=== PATIENT | male | born 1955 | race Caucasian/White ===

== ENCOUNTER 2020-12-12 08:11 | Day surgery (SDC) | payer OTHER, SELFPAY ==
--- NOTE | 2020-12-11 14:22 | P.CONAN_ITS ---
Documented by User: Vale Carolina NP 12/11/20 14:23 HPI - Anesthesia Eval Consult details Narrative: 65yo M for Colonoscopy [facility] Past Medical History Medical History (Updated 12/08/20 @ 10:59 by Patricia Groves, RN) Crohn disease HTN (hypertension) Ulcerative colitis Surgical History Surgical History (Updated 12/08/20 @ 10:59 by Patricia Groves, RN) History of tonsillectomy Hx of colonoscopy Hx of right knee surgery Social History Social History Patient Tobacco Use Status: Never used Tobacco Second Hand Smoke Exposure: No Use of substances other than those prescribed or required for medical reasons: No Are you DNR?: No Advance Directives: No Advance Directives Information Provided: Yes Advance Directives on File: No Meds Allergies Allergy/AdvReac Type Severity Reaction Status Date / Time Penicillins [PCN] Allergy Mild Rash Verified 12/12/20 08:52 Home Medications Medication Instructions Recorded Confirmed Last Taken Type adalimumab 40 mg/0.8 mL 40 mg SUBCUT Q2W 12/08/20 12/08/20 Unknown History subcutaneous syringe kit (Humira) mesalamine 250 mg 1,000 mg PO QID 12/08/20 12/08/20 Unknown History capsule,controlled release (Pentasa) amlodipine 10 mg tablet 1 tab PO DAILY 12/12/20 12/12/20 12/12/20 History atorvastatin 20 mg tablet 1 tab PO DAILY 12/12/20 12/12/20 Unknown History clonidine HCl 0.1 mg tablet 1 tab PO BID 12/12/20 12/12/20 Unknown History hydrocortisone acetate 25 mg mg LA BEDTIME 12/12/20 Unknown History rectal suppository lisinopril 40 mg tablet 1 tab PO DAILY 12/12/20 12/12/20 12/12/20 History mesalamine 250 mg mg PO 12/12/20 Unknown History capsule,controlled release (Pentasa) nitroglycerin 0.4 mg sublingual mg SUBLINGUAL 12/12/20 Unknown History tablet sildenafil 100 mg tablet mg PO 12/12/20 12/12/20 Unknown History Exam Exam Date and Time: December 11, 2020 142 Assessment and Plan Assessment Anesthesia Assessment: Chart Reviewed Documented by User: Rosita Rodriguez MD 12/12/20 09:38 PMF Active Problems Active Problems: HTN Hyperlipidemia Past Medical History Medical History (Updated 12/08/20 @ 10:59 by Patricia Groves, RN) Crohn disease HTN (hypertension) Ulcerative colitis Family History Family history of problems with anesthesia: No Surgical History Surgical History (Updated 12/08/20 @ 10:59 by Patricia Groves, RN) History of tonsillectomy Hx of colonoscopy Hx of right knee surgery History of Problems with Anesthesia: No Social History Social History Patient Tobacco Use Status: Never used Tobacco Second Hand Smoke Exposure: No Use of substances other than those prescribed or required for medical reasons: No Are you DNR?: No Advance Directives: No Advance Directives Information Provided: Yes Advance Directives on File: No Meds Allergies Allergy/AdvReac Type Severity Reaction Status Date / Time Penicillins [PCN] Allergy Mild Rash Verified 12/12/20 08:52 Home Medications Medication Instructions Recorded Confirmed Last Taken Type adalimumab 40 mg/0.8 mL 40 mg SUBCUT Q2W 12/08/20 12/08/20 Unknown History subcutaneous syringe kit (Humira) mesalamine 250 mg 1,000 mg PO QID 12/08/20 12/08/20 Unknown History capsule,controlled release (Pentasa) amlodipine 10 mg tablet 1 tab PO DAILY 12/12/20 12/12/20 12/12/20 History atorvastatin 20 mg tablet 1 tab PO DAILY 12/12/20 12/12/20 Unknown History clonidine HCl 0.1 mg tablet 1 tab PO BID 12/12/20 12/12/20 Unknown History hydrocortisone acetate 25 mg mg LA BEDTIME 12/12/20 Unknown History rectal suppository lisinopril 40 mg tablet 1 tab PO DAILY 12/12/20 12/12/20 12/12/20 History mesalamine 250 mg mg PO 12/12/20 Unknown History capsule,controlled release (Pentasa) nitroglycerin 0.4 mg sublingual mg SUBLINGUAL 12/12/20 Unknown History tablet sildenafil 100 mg tablet mg PO 12/12/20 12/12/20 Unknown History Exam Height,Weight and Vital Signs: Height 6 ft Weight 104.326 kg Vital Signs Temp Pulse Resp BP Pulse Ox 12/12/20 08:51 97.8 F 67 16 139/88 96 Narrative Narrative: No sildenafil for weeks Prescribed nitroglycerin if needed for chest pain. Patient states never had chest pain but BP was high. BP controlled with anti- hypertensives. Has not used or needed NTG Airway Mallampati Class: II TM Dist: >3cm Neck ROM: Full Loose/Missing/Broken Teeth: No Heart: RRR Lungs: CTAB Assessment and Plan Assessment Anesthesia Assessment: Anesthesia Plan Discussed Final Anesthetic Review Family History of Problems with Anesthesia: No History of Problems with Anesthesia: No NPO: Yes ASA Class: II Final Preanesthetic Review: No Changes in Pt Med Stat, Meds/Allgs Chart Reviewed, Consent Obtained/Reviewed and Anes Risks/Benef Reviewed Patient Risk: Low Procedure Risk: Low Assessment/Block/Sedation in SS: Assess/Block/Sedation-SS Anesthetic Plan Anesthetic Plan: MAC: Disposition: Standard PACU
[2020-12-12 08:44] VITALS: BMI 31.1
[2020-12-12 08:51] VITALS: BP 139/88; PULSE 67; RESP 16; TEMP 36.6; O2SAT 96
[2020-12-12] MEDS: Lactated Ringers 1,000 ML 100 ML IVCONT (09:21)
--- NOTE | 2020-12-12 09:32 | MHC.SHP ---
Pre-Procedural Eval Section A Date of Service: 12/12/20 Section B Chief Complaint: crohns Details of Present Illness: see h and p no changes Relevant Family History (Specify if Yes): No Relevant Social History: None Present Medications: see Short Stay Collaborative assessment Medical History: Significant History History of Previous Operations: No relevant previous surgery Allergies: Allergies Allergy/AdvReac Type Severity Reaction Status Date / Time Penicillins [PCN] Allergy Mild Rash Verified 12/12/20 08:52 Review of Systems Sugical H&P ROS: Negative: Constitution, Cardiovascular, Respiratory, Neurological, Psychiatric, Hem-Onc, Allergic/Immunologic, Gastrointestinal, Genitourinary, Musculoskeletal, Integumentary, Endocrine and Eyes/Ears/Nose/Throat Exam Surgical H&P Exam: Normal: HEENT, Normal: Heart, Normal: Lungs, Normal: Extremities, Normal: Abdomen, Normal: Skin and Normal: Neurological Plan Diagnosis/Plan: Unchanged I have reviewed the history and physical and performed a pertinent physical examination on my patient. No changes have occurred unless specified.
[2020-12-12 10:16] VITALS: BP 111/68; PULSE 53; RESP 14; TEMP 36.2; O2SAT 95
--- NOTE | 2020-12-12 10:17 | PM.OP ---
Brief Operative Note Date of Service: 12/12/20 Pre-op diagnosis: crohns colitis Post-op diagnosis: same (colon polyp) Procedure: colonoscopy Surgeon: Pedro Pablo Reyes Anesthesia: MAC Was an Regional Director Of Finance used for this Procedure?: No Estimated blood loss (mL): 5 Pathology: other (polyp x1, biopsies ti and colon) Condition: stable Disposition: PACU
[2020-12-12 10:32] VITALS: BP 129/60; PULSE 54; RESP 16; TEMP 36.2; O2SAT 97
--- NOTE | 2020-12-12 10:35 | OP_ITS ---
SURGEON: Pedro Pablo Reyes MD INDICATIONS: Crohn disease. PREOPERATIVE DIAGNOSIS: POSTOPERATIVE DIAGNOSIS: PROCEDURE PERFORMED: Colonoscopy to the terminal ileum with biopsy and snare polypectomy. ESTIMATED BLOOD LOSS: COMPLICATIONS: ANESTHESIA: ASSISTANTS: SPECIMENS: MEDICATIONS: Monitored anesthesia care. DESCRIPTION OF PROCEDURE: History and physical performed. The risks and benefits of the procedure were explained to the patient. Informed consent was obtained. The patient was placed in the left lateral decubitus position. A digital rectal exam was performed and was found to be normal. The Olympus pediatric video colonoscope was introduced into the rectum and advanced to the cecum without difficulty. The cecum was identified by transillumination, palpation, and identification of ileocecal valve. Examination was performed and the scope was removed. He tolerated the procedure well and was taken to recovery area in stable condition. FINDINGS: The terminal ileum was explored for approximately 15 to 20 cm. This appeared normal. Biopsies were obtained from the mucosa. The visualized colonic mucosa was normal in the right colon and transverse colon without evidence of colitis endoscopically. At about 60 cm, was a 15 mm polyp that was pedunculated. This was snared and recovered with the scope. At about this level, changes of colitis were identified with mucosal edema, mild erythema, some scarring and loss of vascular pattern. Pseudopolyps were also present mainly in the sigmoid and rectum. Biopsies were obtained beginning in the cecum and extending throughout the colon. The colon showed no evidence of diverticulosis. There was some relative rectal sparing and no perianal disease identified. IMPRESSION: 1. Colon polyp. 2. Crohn's colitis. RECOMMENDATION: Follow up the biopsy results. MD MITCH Odonnell/DAVID / [id number]
== END 2020-12-12 11:10 | disposition home or self-care (01) ==
PROVIDERS: PCP Internal Medicine; Visit Provider Internal Medicine Gastroenterology
PROC: 0DJD8ZZ Inspection of Lower Intestinal Tract, Via Natural or Artificial Opening Endoscopic (ICD-10-PCS; CPT 45378; principal; 2020-12-12 09:30)
DX: K50.10 Crohn's disease of large intestine without complications (principal); K63.5 Polyp of colon; I10 Essential (primary) hypertension; Z79.899 Other long term (current) drug therapy
CPT/HCPCS: 45385; 45380; 88305

== ENCOUNTER 2022-08-11 13:28 | Day surgery (SDC) | payer OTHER, SELFPAY ==
[2022-08-11 13:49] VITALS: BMI 29.8
[2022-08-11 14:00] VITALS: BP 155/99; PULSE 76; RESP 16; TEMP 37; O2SAT 97
[2022-08-11] MEDS: Lactated Ringers 1,000 ML 80 ML IVCONT (14:09)
--- NOTE | 2022-08-11 14:29 | HO.ANESPROP2 ---
HPI - Anesthesia Eval Consult details Narrative: screening [facility] Past Medical History Medical History (Updated 12/08/20 @ 10:59 by Patricia Groves, RN) Crohn disease HTN (hypertension) Ulcerative colitis Family History Family history of problems with anesthesia: No Surgical History Surgical History (Updated 12/08/20 @ 10:59 by Patricia Groves, RN) History of tonsillectomy Hx of colonoscopy Hx of right knee surgery History of Problems with Anesthesia: No Social History Social History Patient Tobacco Use Status: Former Tobacco user Second Hand Smoke Exposure: No Use of substances other than those prescribed or required for medical reasons: No Are you DNR?: No Advance Directives: No Advance Directives Information Provided: Yes Recently lost weight without trying: No Nutrition Risks: No Nutritional Risk Meds Allergies Allergy/AdvReac Type Severity Reaction Status Date / Time Penicillins [PCN] Allergy Mild Rash Verified 12/12/20 08:52 Active Medications: Current Medications Lactated Ringer's (Lr) 1,000 mls @ 80 mls/hr IVCONT .[id number] Last Admin: 08/11/22 14:09 Dose: 80 mls/hr Home Medications Medication Instructions Recorded Confirmed Last Taken Type adalimumab 40 mg/0.8 mL 40 mg subcut Q2W 12/08/20 12/08/20 Unknown History subcutaneous syringe kit (Humira) mesalamine 250 mg capsule,extended 1,000 mg PO QID 12/08/20 12/08/20 Unknown History release (Pentasa) amlodipine 10 mg tablet 1 tab PO DAILY 12/12/20 12/12/20 12/12/20 History atorvastatin 20 mg tablet 1 tab PO DAILY 12/12/20 12/12/20 Unknown History clonidine HCl 0.1 mg tablet 1 tab PO BID 12/12/20 12/12/20 Unknown History hydrocortisone acetate 25 mg mg ME BEDTIME 12/12/20 Unknown History rectal suppository lisinopril 40 mg tablet 1 tab PO DAILY 12/12/20 12/12/20 12/12/20 History mesalamine 250 mg capsule,extended mg PO 12/12/20 Unknown History release (Pentasa) nitroglycerin 0.4 mg sublingual mg sublingual 12/12/20 Unknown History tablet sildenafil 100 mg tablet mg PO 12/12/20 12/12/20 Unknown History Exam Exam Date and Time: August 11, 2022 1429 Height,Weight and Vital Signs: Height 6 ft Weight 99.79 kg Last Vital Signs Temp 98.6 F 08/11/22 14:00 Pulse 76 08/11/22 14:00 Resp 16 08/11/22 14:00 BP 155/99 H 08/11/22 14:00 Pulse Ox 97 08/11/22 14:00 O2 Del Method Room Air 08/11/22 14:00 Airway Mallampati Class: I Neck ROM: Full Loose/Missing/Broken Teeth: No Heart: rr Lungs: cta Assessment and Plan Assessment Anesthesia Assessment: Anesthesia Plan Discussed and Chart Reviewed Final Anesthetic Review Family History of Problems with Anesthesia: No History of Problems with Anesthesia: No NPO: Yes ASA Class: II Final Preanesthetic Review: No Changes in Pt Med Stat, Meds/Allgs Chart Reviewed, Consent Obtained/Reviewed, Anes Risks/Benef Reviewed and DNR Form (If Appl.) Patient Risk: Low Procedure Risk: Low Anesthetic Plan Anesthetic Plan: MAC: Disposition: Standard PACU
[2022-08-11 14:58] VITALS: BP 105/71; PULSE 64; RESP 16; TEMP 36.4; O2SAT 97
--- NOTE | 2022-08-11 14:58 | P.BOP_ITS ---
Brief Operative Note Date of Service: 08/11/22 Pre-op diagnosis: crohn colitis Post-op diagnosis: same Procedure: colonoscopy Surgeon: Pedro Pablo Reyes Anesthesia: MAC Was an Paid Search Marketing Analyst used for this Procedure?: No Estimated blood loss (mL): 2 Pathology: other Condition: stable Disposition: PACU
[2022-08-11 15:13] VITALS: BP 136/80; PULSE 56; RESP 16; TEMP 36.2; O2SAT 97
--- NOTE | 2022-08-11 22:31 | OP_ITS ---
DATE OF SERVICE: 08/11/2022 SURGEON: Pedro Pablo Reyes MD INDICATIONS: Crohn's disease involving the colon. PREOPERATIVE DIAGNOSIS: POSTOPERATIVE DIAGNOSIS: PROCEDURE PERFORMED: Colonoscopy to the terminal ileum with biopsy. ESTIMATED BLOOD LOSS: COMPLICATIONS: ANESTHESIA: Monitored anesthesia care. ASSISTANTS: SPECIMENS: DESCRIPTION OF PROCEDURE: A history and physical were performed. The risks and benefits of the procedure were explained to the patient. Informed consent was obtained. The patient was placed in the left lateral decubitus position. A digital rectal exam was performed and was found to be normal. The Olympus pediatric video colonoscope was introduced into the rectum and advanced to the cecum without difficulty. The cecum was identified by transillumination, palpation, and identification of ileocecal valve examination was performed and the scope was removed. He tolerated the procedure well and was turned recovery in stable condition. FINDINGS: The terminal ileum was examined and appeared normal. The visualized colonic mucosa showed changes of colitis mainly involving the last 5 cm the rectum. There was endoscopic evidence of inactive colitis with pseudopolyp formation involving the distal transverse, descending colon, and proximal rectosigmoid. There was no active colitis in this area. Biopsies were obtained from the terminal ileum and from the colon beginning in the right colon extending all the way to the rectum. Retroflexed examination showed the extension of the rectal colitis to the anal sphincter. IMPRESSION: Crohn's colitis. RECOMMENDATION: Follow up the biopsy results. MD MITCH Odonnell/DAVID / [id number] MTDD
== END 2022-08-11 15:38 | disposition home or self-care (01) ==
PROVIDERS: PCP Internal Medicine; Visit Provider Internal Medicine Gastroenterology
PROC: 0DJD8ZZ Inspection of Lower Intestinal Tract, Via Natural or Artificial Opening Endoscopic (ICD-10-PCS; CPT 45378; principal; 2022-08-11 13:00)
DX: K50.10 Crohn's disease of large intestine without complications (principal); K50.111 Crohn's disease of large intestine with rectal bleeding; I10 Essential (primary) hypertension; Z79.899 Other long term (current) drug therapy; Z88.0 Allergy status to penicillin; Z87.891 Personal history of nicotine dependence
CPT/HCPCS: 45380; 88305

== ENCOUNTER → 2023-11-23 13:50 | Outpatient (REF) | payer OTHER, SELFPAY ==
--- NOTE | 2023-11-23 13:56 | CA_ITS ---
Transthoracic Echocardiogram Patient (Last, First, Middle): Chris Blackmon, Gender: Male Date of : 1955 Age: 68 Procedure Date: 11/23/2023 Procedure Type: Transthoracic Echocardiogram Location: OP Height: 182.88 cm Weight: 97.52 kg BSA: 2.20 m2 Heart Rate: bpm BP: 150 / 80 mmHg Airport Maintenance Laborer: REGINALDO Referring MD: Brett Dobbins MD Work Distributor: Topher Florence MD Symptoms: H/O AORTIC ROOT DILATION Study Quality: Fair ECG Rhythm: Sinus Conclusions: - 1. Normal LV ejection fraction of 65-70% with impaired relaxation filling pattern 2. Cardiac valvular Dopplers within normal limits 3. Moderately dilated ascending aorta at 4.5 cm Findings Left Ventricle Normal left ventricular size, thickness, and systolic function. The visually estimated ejection fraction is between 65-70%. Spectral Doppler is indicative of an impaired relaxation filling pattern. E/E prime ratio is between 8 and 15 consistent with indeterminate filling pressures. Right Ventricle Normal right ventricular cavity size and systolic function. Atria The left atrium is normal in size. There is lipomatous hypertrophy of the interatrial septum. There is no evidence of interatrial shunt. The right atrium is normal in size. Aortic Valve The aortic valve was not well visualized. There is mild calcification of the aortic valve. There is no aortic valve stenosis. There is no aortic valve regurgitation. Mitral Valve The mitral valve was not well visualized. There is trace mitral valve regurgitation. There is no mitral valve stenosis. Pulmonic Valve The pulmonic valve was not well visualized. Tricuspid Valve The tricuspid valve was not well visualized. Tricuspid regurgitation envelope is inadequate for calculation of right ventricular systolic pressure. Normal right atrial pressure. Great Vessels The aorta was not well visualized. The pulmonary artery was not well visualized. There is moderate dilatation of the ascending aorta measuring 4.50 cm. Venous The inferior vena cava is normal in size and collapses greater than 50% with inspiration. Pericardium/Pleural There is no evidence of pericardial effusion. Prior Study Comparison No prior study available for comparison. Measurements 2D Linear Measurements IVSd: 1.06 0.6-0.9/0.6-1.0 cm LVIDd: 4.73 3.9-5.3/4.2-5.9 cm LVIDd Index: 2.15 2.4-3.2/2.2-3.1 cm/m2 LVIDs: 3.00 2.0-3.6 cm LVPWd: 1.07 0.7-1.1 cm LA Diam: 4.20 2.7-3.8/3.0-4.0 cm LAIDs Index: 1.91 1.5-2.3 cm/m2 LV Mass: 225.69 67-162/88-224 g LV Mass Index: 102.58 43-95/49-115 g/m2 LVOT Diam: 2.20 3.0+(-)1.3 cm 2D Systolic Function EF 4C: 66.30 >55% EF 2C: 69.40 >55% EF BiP: 66.90 >55% Mitral Valve MV Pk E: 0.57 MV PK A: 0.77 MV Decel Time: 232.00 E/A: 0.70 E'Lateral: 11.10 E'Medial: 7.18 E/E' Med: 7.90 E/E' Lat: 5.10 PHT: 68.00 MVA PHT: 3.24 Decel Russell: 2.45 Aortic Valve AoV Pk Terry: 1.37 AoV Mn Terry: 0.88 AoV VTI: 0.30 AoV Pk Grad: 8.00 Aov Mn Grad: 4.00 FRANCIS Cont.VTI: 3.00 LVOT LVOT Pk Terry: 1.10 LVOT Mn Terry: 0.75 LVOT VTI: 0.24 LVOT Pk Grad: 5.00 LVOT Mn Grad: 3.00 LVOT Diam: 2.20 LVOT Area: 3.80 Diastolic Function MV Pk E: 0.57 MV Pk A: 0.77 E/A: 0.70 E'Medial: 7.18 E/E' Med: 7.90 E' Laterial: 11.10 E/E' Lat: 5.10 Right Ventricle TAPSE (mm): 26.20 TVS' Terry: 15.40 Tricuspid Valve RA Press: 3.00 Great Vessels Aorta Sinus of Valsalva: 3.89 2.0-3.[address] [place]: 3.24 1.7-3.4 cm Ao Asc: 4.50 2.1-3.4 cm Ao Arch: 4.50 Updated in Other Vendor System with Status of Final Topher Florence MD electronically signed on 11/23/2023 3:41:09 PM with status of Final
== END ==
LOC: HO.CARD 13:50
PROVIDERS: PCP Internal Medicine; Visit Provider Internal Medicine
DX: I77.810 Thoracic aortic ectasia (principal)
CPT/HCPCS: 93306

== ENCOUNTER → 2023-11-23 13:56 | Outpatient (BNV) | payer OTHER, SELFPAY | PROVIDERS: PCP Internal Medicine; Visit Provider Internal Medicine Cardiovascular Disease | DX: I71.21 Aneurysm of the ascending aorta, without rupture (principal) | CPT/HCPCS: 93306 ==

== ENCOUNTER → 2025-01-03 13:32 | Outpatient (REF) | payer OTHER, SELFPAY ==
--- NOTE | 2025-01-03 13:47 | CA_ITS ---
Transthoracic Echocardiogram Patient (Last, First, Middle): Chris Blackmon, Gender: Male Date of : 1955 Age: 69 Procedure Date: 01/03/2025 Procedure Type: Transthoracic Echocardiogram Location: OP Height: 180.34 cm Weight: 99.79 kg BSA: 2.20 m2 Heart Rate: 60 bpm BP: 132 / 70 mmHg Business Center Attendant: SB Referring MD: Brett Dobbins MD Capacity Management Specialist: Topher Florence MD Symptoms: I77.810 Study Quality: Adequate ECG Rhythm: Sinus Conclusions: - 1. Normal LV ejection fraction 65-70% 2. Calcified aortic valve changes noted, bicuspid valve can not be entirely ruled out with normal cardiac valvular Dopplers 3. Moderately dilated ascending aorta at 4.5 cm 4. No gross pericardial effusion Findings Left Ventricle Normal left ventricular size, thickness, and systolic function. The visually estimated ejection fraction is between 65-70%. Spectral Doppler is indicative of a normal filling pattern. Right Ventricle Normal right ventricular cavity size and systolic function. Atria The left atrium is normal in size. There is a mobile atrial septum noted. There is no evidence of interatrial shunt. The right atrium is normal in size. Aortic Valve The aortic valve was not well visualized. There is moderate calcification of the aortic valve. There is no aortic valve stenosis. There is no aortic valve regurgitation. Mitral Valve Likely normal mitral valve structure and function. There is trace mitral valve regurgitation. There is no mitral valve stenosis. Pulmonic Valve The pulmonic valve was not well visualized. Tricuspid Valve Likely normal tricuspid valve structure and function. Tricuspid regurgitation envelope is inadequate for calculation of right ventricular systolic pressure. Normal right atrial pressure. Great Vessels The pulmonary artery was not well visualized. There is moderate dilatation of the ascending aorta measuring 4.50 cm and mild dilatation of the aortic arch. Venous The inferior vena cava is normal in size and collapses greater than 50% with inspiration. Pericardium/Pleural There is no evidence of pericardial effusion. Prior Study Comparison No significant change compared to prior study dated: 11/23/2023. Measurements 2D Linear Measurements IVSd: 0.91 0.6-0.9/0.6-1.0 cm LVIDd: 5.67 3.9-5.3/4.2-5.9 cm LVIDd Index: 2.58 2.4-3.2/2.2-3.1 cm/m2 LVIDs: 4.40 2.0-3.6 cm LVPWd: 0.68 0.7-1.1 cm LA Diam: 4.50 2.7-3.8/3.0-4.0 cm LAIDs Index: 2.05 1.5-2.3 cm/m2 LV Mass: 207.57 67-162/88-224 g LV Mass Index: 94.35 43-95/49-115 g/m2 LVOT Diam: 2.40 3.0+(-)1.3 cm 2D Systolic Function EF 4C: 70.60 >55% EF 2C: 68.40 >55% EF BiP: 68.60 >55% Mitral Valve MV Pk E: 0.69 MV PK A: 0.63 MV Decel Time: 226.00 E/A: 1.10 E'Lateral: 7.83 E'Medial: 6.64 E/E' Med: 10.30 E/E' Lat: 8.80 PHT: 66.00 MVA PHT: 3.33 Decel [place]: 3.03 Aortic Valve AoV Pk Terry: 1.52 AoV Pk Grad: 9.00 FRANCIS: 3.78 LVOT LVOT Pk Terry: 1.27 LVOT Mn Terry: 0.88 LVOT VTI: 0.26 LVOT Pk Grad: 6.00 LVOT Mn Grad: 4.00 LVOT Diam: 2.40 LVOT Area: 4.52 Diastolic Function MV Pk E: 0.69 MV Pk A: 0.63 E/A: 1.10 E'Medial: 6.64 E/E' Med: 10.30 E' Laterial: 7.83 E/E' Lat: 8.80 Right Ventricle TAPSE (mm): 23.10 TVS' Terry: 14.50 Tricuspid Valve RA Press: 3.00 Great Vessels Aorta Sinus of Valsalva: 3.50 2.0-3.5 cm Ao Asc: 4.50 2.1-3.4 cm Ao Arch: 4.30 Pulmonary Veins Pulm Vein S/D 1.50 Pulmonary Valve PV Pk Terry: 0.90 Peak PV Grad: 3.00 Updated in Other Vendor System with Status of Final Topher Florence MD electronically signed on 01/03/2025 5:40:12 PM with status of Final
--- OUTSIDE RECORDS SUMMARY | 2025-01-03 16:50 | XMS_ITS | Patient Health Record ---
Author Organization [facility] Address [address] [place] [phone] Care Team Providers Care Torts Law Professor Name Role Phone Brett Dobbins MD Primary Care Provider Pedro Pablo Aviles Jr Unavailable Allergies No Known Allergies Reason For Referral No Information Medications Medication SIG (Take, Route, Frequency, Duration) Notes Start Date End Date Status Hadlima 40 MG/0.8ML 1 Subcutaneous every 2 weeks; Duration: 90 days 11/02/2024 Active Anusol-HC 25 MG 1 suppository Rectal Once at night; Duration: 30 days 09/28/2012 Active cloNIDine HCl 0.1 MG TAKE 1 TABLET BY MO UTH TWICE A DAY Oral; Duration: 90 Active Sildenafil Citrate 100 MG TAKE 1 TABLET BY MOUTH 1 HOUR PRIOR TO INTERCOURSE DIRECTED. Oral; Duration: 30 Active Atorvastatin Calcium 20 MG TAKE 1 TABLET BY MOUTH EVERY DAY Oral; Duration: 90 Active amLODIPine Besylate 10 MG TAKE 1 TABLET BY MOUTH EVERY DAY Oral; Duration: 90 Active Humira Pen 40 MG/0.8ML inject 0.8ml Subc utaneous every 2 weeks; Duration: 90 days 08/04/2022 Active Metoprolol Succinate ER 25 MG TAKE 1/2 TABLET BY MOUTH EVERY DAY Oral; Duration: 90 Active Carvedilol 12.5 MG TAKE 1 TABLET BY RICKY TH TWICE A DAY Oral; Duration: 90 Active Immunizations Vaccine Route Administration Date Status Comme nts Influenza Unknown 07/31/2020 Refused Influenza Unknown 08/04/2022 Refused Influenza Unknown 12/07/2023 Refused Social History Tobacco Use: Social History Observation Description Date Details (start date - stop date) Never Smoker NA - NA Tobacco Use/Smoking Question Answer Notes Patient is a nonsmoker Alcohol Screen Question Answer Notes Did you have a drink contain ing alcohol in the past year? Yes How often did you have a dri nk containing alcohol in the past year? 2 to 3 times a week (3 points) How many drinks did you have on a typical day when you were drinking in the past year? 1 or 2 drinks (0 point) How often did you have 6 or more drinks on one occasion in the past year? Never (0 point) Points 3 Interpretation Negative Problems Problem Type SNOMED Code ICD Code Onset Dates Problem Status W/U Status Risk Notes Problem Crohn's disease of large bowel (5087923) Crohn''s disease of large intestine without complication (K50.10) Active confirmed Problem Crohn's disease of large bowel (8199463) Crohn''s disease of colon without complication (K50.10) Active confirmed Problem Crohn's disease of large bowel (6412779) Crohn's disease of colon without complication (K50.10) Active confirmed Problem Crohn's disease of large bowel (6373012) Crohn's disease of colon with rectal bleeding (K50.111) Active confirmed Encounters Encounter Location Date Provider Diagnosis [facility] [address] [place] [phone] 08/15/2024 Pedro Pablo Reyes Jr [facility] [address] [place] [phone] 11/01/2024 Pedro Pablo Reyes Jr [facility] [address] [place] [phone] 11/09/2024 Pedro Pablo Ryees Jr [facility] [address] [place] [phone] 11/29/2024 Pedro Pablo Reyes Jr Plan Of Treatment Future Test Test Name Order Date COLONOSCOPY 07/31/2020 COLONOSCOPY 08/04/2022 Insurance Providers Payer Name Payer Address Payer Phone Subscriber Number Group Number Insured Name Patient Relationship to Insured Coverage Start Date Coverage End Date [facility] [address] [place] [phone] [id number] LUDMILA SANDOVAL Self - patient is the insured Medical (General) History Medical History History ICD Code Hypertension Crohn's colitis, diagnosed 2 , previous treatment with steroids, 5-ASA agents and Remicade, Remicade stopped due to allergic reaction. Current therapy Humira stopped by patient, 02/11, restarted 08/13. Colonoscopy 08/13, normal TI, colitis involving the last 5 cm of the rectum, no dysplasia on biopsies Surgical History Surgery Date(Month/Year) right knee tonsillectomy right hip replacement 04/15
--- OUTSIDE RECORDS SUMMARY | 2025-01-03 16:50 | XMS_ITS | Data Portability ---
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 Status post hip surgery: Status post TRUDY with no evidence of complication, well fixed, well aligned, and located. There is good jainism of leg length and offset without loosening or migration. Impression: Right hip pain Plan: Unfortunately I do not have a good explanation for trejo pain. He asked whether this is something a targeted injection could improve advised him that it might be but it is hard to target an injection at a point like this when he is completely nontender. Given the location and description of his pain, if he is experiencing this from a muscular origin it is likely related to his abductor muscles and iliopsoas. I will write him a prescription for physical therapy for treatment of these muscle groups, I provided him with my engagement director's card with her phone number and a mallet dressing on it and if he does have a flareup of his pain, he will contact her and if I am in clinic that day we will squeeze him in on the same day for a targeted injection. I also suggested to him that one possibility is that he might have an inguinal hernia. I had had 3 patients over the last 5-6 years who had similar intermittent groin area pain over subsequent diagnosed with a hernia and treated surgically by general surgeon. He stated he would discuss this with his primary care provider [email or web address] Not available 06/05/2024 11:49:04 07/02/2024 07/02/2024 Assessment: Patient presents with symptoms that are consistent with TRUDY including antalgic gait mechanics, decreased ROM, strength limitations, and difficulty navigating stairs. Plan: Continue with PT at 2x/week for 4 weeks focusing on decreasing pain, improving ROM, strength, optimizing gait and stair mechanics, and mobility for functional ADL's. [email or web address] Not available 07/08/2024 21:12:16 07/12/2024 07/12/2024 Assessment: Pt with mil/mod Mid ITB/lat quad tightness, R hip ER ABD cont weakness vs L Plan: Continue with PT at 2x/week for 4 weeks focusing on decreasing pain, improving ROM, strength, optimizing gait and stair mechanics, and mobility for functional ADL's. Not available 07/12/2024 18:30:17 07/19/2024 07/19/2024 Assessment: Pt. cont with mild quad/Hip flexor tightness, demonstrating improved Hip Abd strength. Plan: Continue with PT at 2x/week for 4 weeks focusing on decreasing pain, improving ROM, strength, optimizing gait and stair mechanics, and mobility for functional ADL's. Not available 07/22/2024 20:39:53 Plan of Treatment Reminders Order Date Submit Date Provider Last Modified By Organization Details Last Modified Time Details Appointments None recorded. Lab ESR (erythroc yte sedimenta tion rate), blood 2024 025 [email or web address] [facility] (Centralized Electronic Ordering - All Locations), Patient Can Go To The Location Of Their Choice, 13:19:27 C reactive protein, QN, serum or plasma 2024 025 [email or web address] [facility] (Centralized Electronic Ordering - All Locations), Patient Can Go To The Location Of Their Choice, 13:19:27 CBC w/ auto diff 2024 025 [email or web address] [facility] (Centralized Electronic Ordering - All Locations), Patient Can Go To The Location Of Their Choice, 16:01:25 Referral physical therapist referral - Alexx Sloanin g, Abductor and Iliopsoas Please bring this script and attached protocol with you to your physical therapy appointme nt 2024 025 [email or web address] Not available 13:45:26 pain managemen t referral - evaluate far facet pain 2024 025 [email or web address] Not available 15:40:49 Procedures None recorded. Surgeries None recorded. Imaging XR, hip + pelvis, unilatera l, 2 or 3 view - HX of ARTHR pain. AB protocol. room 203 2024 025 [email or web address] [facility], [address], [address], [place], [address], 13:45:26 XR, lumbar spine, 2 view - 307 l spine 2v 2024 025 [email or web address] [facility], [address], [address], [place], [address], 13:19:27 Medication Orders None recorded. Patient TargetsNo targets recorded. Patient InstructionsNo instructions recorded. Reason for Referral Pain Management Referral for Degeneration of lumbar intervertebral disc evaluate far facet pain Referring Physician: Louise Lion, Orthopedic Surgery, Encounter Date: 04/23/2024 Physical Therapist Referral for History of total replacement of right hip joint Strengthening, Stretching, Abductor and IliopsoasPlease bring this script and attached protocol with you to your physical therapy appointment Referring Physician: Jamey Mott, Orthopedic Surgery, Encounter Date: 06/05/2024 Results Created Date Observation Date Name Description Value Unit Range Abnormal Flag Note LastModifiedBy Organization Detail LastModifiedTime 06/01/1905/31/2024 CBC WITH DIFFE RENTI AL/PL ATELE T WBC 7.4 K/mm3 4.0-11 .0 normal Not Available [facility] [address] [place] [address], [place], [address], 05/31/2024 13:26:28 06/01/1905/31/2024 CBC WITH DIFFE RENTI AL/PL ATELE T RBC 5.27 M/mm3 4.70-6 .10 normal Not Available [address], [address], 05/31/2024 13:26:28 06/01/19 25 05/31/2024 CBC WITH DIFFE RENTI AL/PL ATELE T hemoglobin 16.1 gm/dL 13.7-1 7.1 normal Not Available [address], [address], 05/31/2024 13:26:28 06/01/19 25 05/31/2024 CBC WITH DIFFE RENTI AL/PL ATELE T hematocrit 47.5 % 40.5-5 0.0 normal Not Available [address], [address], 05/31/2024 13:26:28 06/01/19 25 05/31/2024 CBC WITH DIFFE RENTI AL/PL ATELE T MCV 90.1 fL 80.0-9 4.0 normal Not Available [address], [address], 05/31/2024 13:26:28 06/01/19 25 05/31/2024 CBC WITH DIFFE RENTI AL/PL ATELE T MCH 30.6 pg 27.0-3 4.0 normal Not Available [address], [address], 05/31/2024 13:26:28 06/01/19 25 05/31/2024 CBC WITH DIFFE RENTI AL/PL ATELE T MCHC 33.9 g/dL 33.0-3 7.0 normal Not Available [address], [address], 05/31/2024 13:26:28 06/01/19 25 05/31/2024 CBC WITH DIFFE RENTI AL/PL ATELE T RDW 40.7 fL <47.0 Not Available [address], [address], 05/31/2024 13:26:28 06/01/19 25 05/31/2024 CBC WITH DIFFE RENTI AL/PL ATELE T platelets 279 K/mm3 150-46 0 normal Not Available [address], [address], 05/31/2024 13:26:28 06/01/19 25 05/31/2024 CBC WITH DIFFE RENTI AL/PL ATELE T neutrophils 59.1 % 44-76 normal Not Available [address], [address], 05/31/2024 13:26:28 06/01/19 25 05/31/2024 CBC WITH DIFFE RENTI AL/PL ATELE T lymphs 30.0 % 15-43 normal Not Available [address], [address], 05/31/2024 13:26:28 06/01/19 25 05/31/2024 CBC WITH DIFFE RENTI AL/PL ATELE T monocytes 7.7 % 4.5-10 .5 normal Not Available [address], [address], 05/31/2024 13:26:28 06/01/19 25 05/31/2024 CBC WITH DIFFE RENTI AL/PL ATELE T eos 2.3 % 0-6 normal Not Available [address], [address], 05/31/2024 13:26:28 06/01/19 25 05/31/2024 CBC WITH DIFFE RENTI AL/PL ATELE T basos 0.4 % 0-2 normal Not Available [address], [address], 05/31/2024 13:26:28 06/01/19 25 05/31/2024 CBC WITH DIFFE RENTI AL/PL ATELE T neutrophils (absolute) 4.4 K/mm3 1.3-7. 0 normal Not Available [address], [address], 05/31/2024 13:26:28 06/01/19 25 05/31/2024 CBC WITH DIFFE RENTI AL/PL ATELE T lymphs (absolute) 2.2 K/mm3 0.8-3. 1 normal Not Available [address], [address], 05/31/2024 13:26:28 06/01/19 25 05/31/2024 CBC WITH DIFFE RENTI AL/PL ATELE T monocytes(ab solute) 0.6 K/mm3 0.4-1. 3 normal Not Available [address], [address], 05/31/2024 13:26:28 06/01/19 25 05/31/2024 CBC WITH DIFFE RENTI AL/PL ATELE T eos (absolute) 0.2 K/mm3 0.0-0. 4 normal Not Available [address], [address], 05/31/2024 13:26:28 06/01/19 25 05/31/2024 CBC WITH DIFFE RENTI AL/PL ATELE T baso (absolute) 0.0 K/mm3 0.0-0. 1 normal Not Available [address], [address], 05/31/2024 13:26:28 06/01/19 25 05/31/2024 CBC WITH DIFFE RENTI AL/PL ATELE T immature granulocytes 0.5 % Not Available [address], [address], 05/31/2024 13:26:28 06/01/19 25 05/31/2024 CBC WITH DIFFE RENTI AL/PL ATELE T immature grans (abs) 0.0 K/mm3 Not Available [address] [place], [address], 05/31/2024 13:26:28 06/01/19 25 05/31/2024 CBC WITH DIFFE RENTI AL/PL ATELE T NRBC 0.0 #/100 _WBC' s Not Available [address], [address], 05/31/2024 13:26:28 06/01/19 25 05/31/2024 CBC WITH DIFFE RENTI AL/PL ATELE T hematology comments: Commen t AUTOM ATED DIFFE RENTI AL MPV 9.1 FL 9.4-1 2.4 L ABS. NRBC 0.0 K/MM3 N Not Available [address], [address], 05/31/2024 13:26:28 06/01/19 25 05/31/2024 SEDIM ENTAT ION RATE- WESTE RGREN sedimentatio n rate-westerg janie 3 mm/HR 0-15 normal Not Available [address], [address], 05/31/2024 13:26:29 06/01/19 25 05/31/2024 C-LAUREL CTIVE PROTE IN, QUANT C-reactive protein, quant <0.3 mg/dL 0-0.5 Not Available [address], [address], 05/31/2024 13:26:30 04/24/19 25 04/23/2024 XR, lumba r spine , 2 view [email or web address]:/ [email or web address] ?Encry pted=s hAaTro YD8dLq bEUv6g %2BXZw aYqtaq 0bqfl% 2Fg9IQ a4ajBk vP9nXo QUaueC m3YtLR FvZlgJ JJ8mAn HZtai3 7b0120 AC0Kqb XuGWae iKiQtr MwF INTERFACE [facility] [address], [place], [address], 04/23/2024 10:29:06 04/24/19 25 04/23/2024 XR, lumba r spine , 2 view [email or web address] ?Encry pted=s hAaTro YD8dLq bEUv6g %2BXZw aYqtaq 0bqfl% 2Fg9IQ a4ajBk vP9nXo QUaueC m3YtLR FvZlgJ JJ8mAn HZtai3 9j5654 AC0Kqb XuGWae iKiQtr MwF INTERFACE [facility] [address], [place], [address], 04/23/2024 10:29:08 06/06/19 25 06/05/2024 XR, hip + pelvi s, unila teral , 2 or 3 view [email or web address] ?Encry pted=s hAaTro YD8dLq bEUv6g %2BXZw aYqtaq 0bqfl% 2Fg9IQ a4ajBk vP9nXo QUaueC m3YtLR FvZlgJ JJ8mAn HZtai3 5j2892 AC0KqY 3uNVqu uKiQtr MwF INTERFACE [facility] [address] [place] [address], [place], [address], 06/05/2024 09:57:13 06/06/19 25 06/05/2024 XR, hip + pelvi s, unila teral , 2 or 3 view [email or web address]:/ [email or web address] ?Encry pted=s hAaTro YD8dLq bEUv6g %2BXZw aYqtaq 0bqfl% 2Fg9IQ a4ajBk vP9nXo QUaueC m3YtLR FvZlgJ JJ8mAn HZtai3 5a4013 AC0KqY 3uNVqu uKiQtr MwF INTERFACE [facility] [address], [place], [address], 06/05/2024 09:57:14 Result Notes Documentation Provider Name and Address Organization Details Recorded Time Xr, Lumbar Spine, 2 View : [email or web address] Encrypted=pyKkXifZN3cYjxP Uv6g%5WIOmpKdtwj5hanr%2Fg 2YEu5wkEsnM2bZbGDrawSb2Ia MDWcOxnLYP9kIsFYcmr84l810 2LJ4KymXrTHohgHpTpzTdU Not Available [facility] 04/23/2024 10:29: 06 Xr, Lumbar Spine, 2 View : [email or web address] Encrypted=viEiKcbLG2wJefJ Uv6g%6EFWrcMyckk5tjgc%2Fg 8IUe7lsVetH0aFtVQwhqSl8Ah UCPrSbmGFR2dWfXBvzg87o367 4YJ9ZxeUoWGaokPcMlwQlQ Not Available [facility] 04/23/2024 10:29: 08 Xr, Hip + Pelvis, Unilateral, 2 Or 3 View : [email or web address] Encrypted=pbQyRmpHQ9gEacF Uv6g%8FMZtpRgqjf1nsly%2Fg 0BKj4oiMdmA3wQlZWgrhIv7Dg CZIqSjlACB9pSlNZxqd37j662 1TC2SlK0nZCckqRiUxrZrU Not Available [facility] 06/05/2024 09:57: 13 Xr, Hip + Pelvis, Unilateral, 2 Or 3 View : [email or web address] 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 Procedures Surgical History Date Name Laterality Status Provider Name and Address Organization Details Recorded Time 5 45539 Therapeutic Exercise (1:1) completed Vincent Corrina, PT [address], [place], [address], [facility] 07/19/2024 16:08:17 5 70685: Manual therapy completed Vincent Corrina, PT [address], [place], [address], [facility] 07/19/2024 16:08:17 5 76584 Therapeutic Exercise (1:1) completed Vincent Corrina, PT [address], [place], [address], [facility] 07/12/2024 18:30:45 5 61060: Manual therapy completed Vincent Corrina, PT [address], [place], [address], [facility] 07/12/2024 18:31:05 5 93015 Therapeutic Exercise (1:1) completed Vincent Corrina, PT [address], [place], [address], [facility] 07/08/2024 21:59:40 5 28743: Low complexity PT Eval completed Vincent Corrina, PT [address], [place], [address], [facility] 07/08/2024 21:59:49 4 81481 Therapeutic Exercise (1:1) completed Vincent Workmano, PT [address], [place], [address], [facility] 05/10/2023 08:50:10 4 37037 Therapeutic Exercise (1:1) cancelled Chelle Musarena, [employer] SPECIALIST [address], [place], [address], [facility] 05/06/2023 07:59:17 Imaging Results None recorded. Procedure Notes None recorded. Medical Equipment None Reported. Allergies Allergen ID Allergen Name Allergen Category Reaction Reaction Severity Criticality Documentation Date Start Date Code Code System Note Provider Name and Address Organization Details Recorded Time 552622 Product containin g penicilli n (product) medicatio n Not available Not available Not available 04/25/20232022 96108 8001 SNOMED Not Available [facility] 16:01:27 Medications Name Sig Start Date Stop Date Status Note LastModified by Organization Details LastModified Time celecoxib 200 mg capsule TAKE 1 CAPSULE BY MOUTH EVERY DAY STARTING 3 DAYS AFTER SURGERY 06/05 completed Not Available Not Available Not Available amoxicillin 500 mg capsule TAKE 4 CAPSULES BY MOUTH TO START AND THEN 1 CAPSULE 4 TIMES A DAY . UNTIL GONE. active Not Available Not Available No t Available clonidine HCl 0.1 mg tablet TAKE 1 TABLET BY MOUTH TWICE A DAY active Not Available Not Available No t Available atorvastati n 20 mg tablet TAKE 1 TABLET BY MOUTH EVERY DAY active Not Available Not Available No t Available carvedilol 12.5 mg tablet TAKE 1 TABLET BY MOUTH TWICE A DAY active Not Available Not Available No t Available aspirin 325 mg tablet TAKE 1 TABLET BY MOUTH TWICE A DAY STARTING AFTER SURGERY 06/05 completed Not Available Not Available Not Available meloxicam 15 mg tablet TAKE 1 TABLET BY MOUTH EVERY DAY AFTER A MEAL 06/05 completed Not Available Not Available Not Available prednisone 20 mg tablet TAKE 1 TABLET BY MOUTH EVERY DAY 06/05 completed Not Available Not Available Not Available prednisone 5 mg tablet 4 TABLETS DAILY FOR ONE WEEK, TAPER BY ONE TABLET WEEKLY. 06/05 completed Not Available Not Available Not Available tramadol 50 mg tablet TAKE 1 TO 2 TABLETS BY MOUTH EVERY 6 HOURS NEEDED FOR MILD PAIN. DO NOT EXCEED 8 TABLETS (400MG) PER DAY. 06/05 completed Not Available Not Available Not Available sildenafil 100 mg tablet TAKE 1 TABLET BY MOUTH DIRECTED 1 HOUR BEFORE INTERCOUR SE. active Not Available Not Available No t Available amoxicillin 500 mg tablet TAKE 2 TABLETS BY MOUTH NOW THEN TAKE 1 TABLET 4 TIMES A DAY UNTIL FINISHED 05/12 completed Not Available Not Available Not Available hydrocortis one acetate 25 mg rectal suppository INSERT 1 SUPPOSITO RY RECTALLY NIGHTLY active Not Available Not Available No t Available oxycodone-a cetaminophe n 5 mg-325 mg tablet TAKE 1 TABLET BY MOUTH EVERY 4 TO 6 HOURS NEEDED 06/05 completed Not Available Not Available Not Available amlodipine 10 mg tablet TAKE 1 TABLET BY MOUTH EVERY DAY active Not Available Not Available No t Available pantoprazol e 40 mg tablet,richard yed release TAKE 1 TABLET BY MOUTH EVERY DAY STARTING MORNING OF SURGERY 05/12 completed Not Available Not Available Not Available docusate sodium 100 mg capsule TAKE 1 CAPSULE BY MOUTH TWICE A DAY DIRECTED STARTING SFTER SURGERY active Not Available Not Available No t Available triamterene 37.5 mg-hydrochl orothiazide 25 mg tablet TAKE 1 TABLET BY MOUTH EVERY DAY active Not Available Not Available No t Available metoprolol succinate ER 25 mg tablet,exte nded release 24 hr TAKE 1/2 TABLET BY MOUTH EVERY DAY active Not Available Not Available No t Available ibuprofen 600 mg tablet 1 TABLET EVERY 4 TO 6 HOURS NEEDED 06/05 completed Not Available Not Available Not Available oxycodone 5 mg tablet TAKE 1 TO 2 TABLETS BY MOUTH EVERY 4 HOURSY NEEDED FOR SEVERE PAIN 06/05 completed Not Available Not Available Not Available chlorhexidi ne gluconate 0.12 % mouthwash SWISH AND SPIT 15 ML IN THE MORNING AND IN THE EVENING FOR 2 WEEKS active Not Available Not Available No t Available Humira Pen 40 mg/0.8 mL subcutaneou s kit active Not Available Not Available Not Available Vitals Date Recorded Body height Body mass index (BMI) Body weight Provider Name and Address Organization Details Last Updated DateTime 04/23/2024 184.15 cm 29.2 kg/m2 03003.14 g Kamilla fitzpatrick [place] - [facility] 04/23/2024 10:21:35 Date Recorded Body height Body mass index (BMI) Body weight Provider Name and Address Organization Details Last Updated DateTime 06/05/2024 184.15 cm 28.8 kg/m2 59955.36 g BRITTANY POPE [place] - [facility] 06/05/2024 09:47:43 Social History None recorded. Functional Status None recorded. Mental Status None recorded. Family History Nothing Reported. Medical History No medical history recorded. Past Encounters Encounter ID Performer Location Encounter Start Date Encounter Closed Date Diagnosis/Indication Diagnosis SNOMED-CT Code Diagnosis ICD10 Code Diagnosis IMO Codes Diagnosis Note [id number] Vincent Coxonso, PT [facility] [address] [place] [address] 05/09/2023 11:07:19 05/09/2023 12:04:04 Aftercare 434430386 Z47.1 History of right hip replacement 6088138407 012289 Z96.528 [id number] MD David Purcell [address] [place] [address] 05/13/2023 13:51:47 06/07/2023 15:56:10 History of total replacement of right hip joint 2284876665 85929 Z96.353 [id number] MD David Purcell [address] [place] [address] 12/22/2023 10:24:11 01/11/2024 11:45:54 History of total replacement of right hip joint 4536519094 43900 Z96.641 [id number] Lumbar radiculopathy 128 269475 M54.16 [id number] ALEXANDRE Calles [address] [place] [address] 04/23/2024 09:50:44 05/07/2024 16:40:35 Low back pain 604705753 M54.59 [id number] History of total replacement of right hip joint 7164218108 80277 Z96.641 95693893 Degenerati on of lumbar intervertebral disc 52346501 M51.369 [id number] MD EREN Purcell [address] [place] [address] 06/05/2024 09:44:27 06/13/2024 13:45:26 History of total replacement of right hip joint 4348310137 96120 Z96.641 [id number] Pain of hip region 31776 002 M25.551 [id number] Vincent Workmano, PT [facility] [address] [place] [address] 07/02/2024 10:25:58 07/02/2024 11:17:24 Pain of hip region 85514992 M25.551 093555 [id number] Vincent Corrina, PT [facility] [address] [place] [address] 07/12/2024 14:57:57 07/12/2024 15:38:04 Pain of hip region 27880950 M25.551 024983 [id number] Vincent Workmano, PT [facility] [address] [place] [address] 07/19/2024 15:20:26 07/19/2024 16:29:05 Pain of hip region 61310869 M25.551 [id number] Health Concerns Section Related Observation LastModified by Organization Detai ls LastModified Time None Recorded Concern Status LastModified by Organization Details LastModified Time None Recorded Advance Directives Directive None Recorded Payers Insurance Date Sequence Insurance Name Policy Number Policy Lema Covered Member ID Lema Member ID Guarantor Name 07/29/[address] [place] [address] [id number] Chris Blackmon [id number] Chris Blackmon Notes Date Note Type Note Provider Name and Address Organization Details Recorded Time 04/23/2024 text/html I am seeing the patient today under the supervision of Dr. Adkins who was available but who did not see the patient. HPI: Patient presents for evaluation of ongoing low back pain. Patient is 1 year status post right total hip arthroplasty with Dr. Mott. He is having both back and hip pain. We have discussed his back pain today primarily. He states he is very concerned and would like to know what is going on with his hip. He did not feel that his previous appointment with Dr. Mott was helpful. He prefers to see a PA if possible. Regarding his back, he is complaining of start up pain in the low back only when he goes to get up which dissipates a little during the day. Low back pain only really no radiating leg complaints described. He has an occasional fleeting sciatica type pain down his right leg which happens once a month if that. The pain in his back occurs mostly with standing. He denies significant leg pain with walking. Denies numbness or weakness in the legs. Localizes hip point to the groin only without radiation. The pain limits him and he is frustrated with the quality of his life due to this. He has tried PT exercises for the hip and back over the past few months with minimal improvement. He has tried anti-inflammatories as well. He has not had injections in his back before. Denies bowel or bladder dysfunction. TREATMENTS: Bed rest, activity modification, home exercise core strengthening hip and lumbar stabilization program over the past 3 months, and NSAIDs. Past family, medical, social history and review of systems has been reviewed, updated and signed by me and is located in the patient's chart. Examination: The patient is well appearing, alert and oriented x3 and in no acute distress. Gait is antalgic. Inspection of the spine reveals no step off, deformity or overlying skin changes. Range of motion of the lumbar spine is 60% of normal. Mild discomfort with loading his facets both sides with standing and extension. Range of motion of the hip and knees full without significant discomfort. The spine is nontender over the paravertebral musculature. Nontender over the greater trochanters. Straight leg raise is negative bilaterally. Strength and sensation intact. Re e xes normal. No ankle clonus. X-rays ordered, obtained and reviewed at [facility], 2 views of the lumbar spine reveals no fractures, instability or bony lesions. Degenerative disc disease noted. Significant facet arthrosis noted L4-S1. Impression/Plan: Low back pain/Lumbar DDD/facet arthrosis with facet mediated pain. Ongoing right groin pain 1 year status post total hip arthroplasty. Discussed the nature of both problems with the patient. Discussed conservative treatment options for his low back. The patient would like a referral to Dr. Gary at [facility] to discuss a facet block for facet mediated pain. He understands a home core strengthening program will also help his condition over time. He has a home gym and would like to start doing this regularly. A handout was provided from [facility] with low back exercises/core strengthening/stret yamilet. Will order labs given ongoing hip pain and have follow-up with one of his previous providers who saw him for his hip. Patient agrees to this. [employer] speech recognition retail route supervisor software was used to create portions of this document. An attempt at proofreading has been made to minimize errors. Please call for corrections. Louise Lion PA-C [address], [place], [address], [facility] 04/23/2024 11:40:53 06/05/2024 text/html ROS as noted in the HPI History of present illness:Chris presents today for repeat evaluation of his right hip. He is continuing to have intermittent pain in his hip, he states he will have days where he has no pain whatsoever. He will have days where he wakes up and is immediately limping and lives for the rest of the day. He states that he has pain in the lateral aspect of his hip is generally fairly mild, and when his pain severely flares up it is more felt centrally towards the groin. This started late after surgery, his initial recovery was uneventful. He underwent a course of treatment with a long-acting nonsteroidal anti-inflammatory and found that this did not do anything to affect his pain. He did have his back interrogated but states that he was told while he has arthritis in his back it is likely not causing him the symptomsPast family, medical, social history and review of systems has been reviewed and updated, and is located in the patient s chart. Jamey Mott MD [address], [place], [address], [facility] 06/05/2024 11:49:15 07/02/2024 text/html Patient is 68 year old male, with c/o insidious onset of R hip px 11/2023. Pt with h/o R ant TRUDY 03/2023. Pt states R hip px sx's have gradually improved since initial onset though not fully resolved. Recent XRAYs were negative. Functional limitations prolonged amb, prolonged stair mobility, performing heavy activity/lifting. Vincent Houser, PT [address], [place], [address], [facility] 07/08/2024 23:28:56 07/12/2024 text/html Pt. states occasional R hip achiness, but nothing constant. Vincent Houser, PT [address], [place], [address], [facility] 07/12/2024 18:32:22 07/19/2024 text/html Pt. states R hip has been feeling good, went for a hike over the weekend and it felt ok. Vincent Houser, PT [address], [place], [address], [facility] 07/22/2024 20:40:24
--- OUTSIDE RECORDS SUMMARY | 2025-01-03 16:50 | XMS_ITS | Clinical Summary ---
Author Organization 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 Role Phone Unavailable Primary Care Provider Unavailabl e Social History Tobacco Use Types Packs/Day Years Used Date Smoking Tobacco: Never Assessed Sex and Gender Information Value Date Recorded Sex Assigned at Not on file Legal Sex Male 2:53 AM EST Gender Identity Not on file Sexual Orientation Not on file Plan of Treatment Health Maintenance Due Date Last Done Comments Colorectal Cancer Screening: Colonoscopy 1955 DTaP,Tdap,and Td Vaccines (1 - Tdap) 1976 Pneumococcal Vaccine: 50+ Ye ars (1 of 1 - PCV) 10/23/2007 Zoster Vaccines (1 of 2) 10/23/2007 Abdominal Aortic Aneurysm (A AA) Screen 01/24/2022 Cholesterol Screening (Lipid Panel) 01/24/2022 Hepatitis C Screening 01/24/2022 Social Influencers of Health Screening 01/24/2022 Falls Risk Assessment 2022 Depression Screening 02/22/2024 COVID-19 Vaccine (1 - 2024-2 6 season) 2024 Influenza Vaccine (#1) 2024 RSV Immunization Adult Patie nts (1 - 1-dose 75+ series) 2032 HIB Vaccines Aged Out No longer eligi ble based on patient's age to complete this topic HPV Vaccines Aged Out No longer eligi ble based on patient's age to complete this topic Hepatitis A Vaccines Aged Out No long er eligible based on patient's age to complete this topic Hepatitis B Vaccines Aged Out No long er eligible based on patient's age to complete this topic IPV Vaccines Aged Out No longer eligi ble based on patient's age to complete this topic MMR Vaccines Aged Out No longer eligi ble based on patient's age to complete this topic Meningococcal ACWY Vaccine Aged Out N o longer eligible based on patient's age to complete this topic Meningococcal B Vaccine Aged Out No l onger eligible based on patient's age to complete this topic RSV Immunization Patients Un rajiv 20 months Aged Out No longer eligible b ased on patient's age to complete this topic Varicella Vaccines Aged Out No longer eligible based on patient's age to complete this topic
== END ==
LOC: HO.CARD 13:32
PROVIDERS: PCP Internal Medicine; Visit Provider Internal Medicine
DX: I77.810 Thoracic aortic ectasia (principal)
CPT/HCPCS: 93306

== ENCOUNTER → 2025-01-03 13:47 | Outpatient (BNV) | payer OTHER, SELFPAY | PROVIDERS: PCP Internal Medicine; Visit Provider Internal Medicine Cardiovascular Disease | DX: I35.8 Other nonrheumatic aortic valve disorders (principal); I77.810 Thoracic aortic ectasia | CPT/HCPCS: 93306 ==